=== PATIENT | male | born 1950 | race Caucasian/White ===

== ENCOUNTER → 2017-06-30 | Outpatient (CLI) | payer MEDICARE | LOC: RT 12:47 | DX: G47.10 Hypersomnia, unspecified (principal); J44.9 Chronic obstructive pulmonary disease, unspecified; R06.83 Snoring; R53.83 Other fatigue ==

== ENCOUNTER → 2017-07-04 | Outpatient (CLI) | payer MEDICARE ==
[2017-07-04 12:59] LABS: HEMOGLOBIN 14.6 g/dL (14.1-18.0); LYMPH # 1.1 K/mm3 (0.7-4.5); LYMPH % 16.4 % (10-50)
--- NOTE | 2017-07-08 08:27 | RADIOLOGY REPORT PS360 ---
NUC BONE SCAN (W/FLOW) 3PHASE HISTORY: Left knee pain R/O INFECTION LEFT KNEE ORDERING PHYSICIAN: CONCETTA CHUA PATIENT AGE: 66 years COMPARISON: Outside radiographs of 07/02/2017 of the knees and left knee of 06/07/2015 DOSE: 24.8 mCi technetium MDP FINDINGS: The blood flow images show slight increase activity to the left knee and upper leg. This is not as intense as one one would expect for an acute area of osteomyelitis. The blood pool images demonstrates increased activity about the left knee both medially and laterally greater along the medial aspect of the knee joint at both the distal femur and proximal tibia. Curiously, increased activity is also present along the distal and anterior aspect of the femur/suprapatellar region. The delayed images demonstrate increased activity at the medial aspect of the knee joint at both the distal femur and proximal tibia. Photopenic area is noted at the right knee from previous total knee prosthesis. IMPRESSION: Increased activity involves the medial aspect of the left knee on the immediate and delayed images with only slight increased activity on the blood flow images. All these findings may only be related to chronic inflammation, Underlying infection of the prosthesis cannot be excluded based on this study. Consider tagged white blood cell scan for further evaluation if clinically warranted.
== END ==
LOC: RAD 11:00
PROVIDERS: Specialist/Technologist Athletic Trainer
DX: M25.562 Pain in left knee (principal)
CPT/HCPCS: A9503

== ENCOUNTER → 2017-07-22 | Outpatient (CLI) | payer MEDICARE ==
--- NOTE | 2017-07-22 07:28 | RADIOLOGY REPORT PS360 ---
CHEST(2 VIEWS-NOT PORTABLE) HISTORY: COPD ORDERING PHYSICIAN: Eleazar Easton MD PATIENT AGE: 66 years COMPARISON: 02/17/2017 FINDINGS: The cardiomediastinal silhouette and pulmonary vascularity are within normal limits. Hyperinflation with attenuation of the peripheral performed vessels consistent with COPD. Calcified granuloma is present in the left lung base. Pericardial fat pad noted on the left as well. There is some minimal scarring in the right upper lobe. No lobar consolidation or collapse.. No acute bony abnormalities. IMPRESSION: COPD, old granulomatous disease. No change with no acute finding
[2017-07-22 08:24] LABS: URINE BILIRUBIN - DIPSTICK NEGATIVE (NEG); URINE BLOOD NEGATIVE (NEG)
[2017-07-22 08:29] LABS: LYMPH # 1.5 K/mm3 (0.7-4.5); LYMPH % 27.9 % (10-50)
[2017-07-22 09:07] LABS: HEMOGLOBIN 16.1 g/dL (14.1-18.0)
[2017-07-22 09:32] LABS: URINE SQUAMOUS CELLS OCC #/hpf (OCC)
[2017-07-22 10:24] LABS: BUN 16 mg/dL (7-18)
[2017-07-22 11:12] LABS: GFR (ESTIMATED) 55 ML/MIN (>60)
== END ==
LOC: RAD 07:08
PROVIDERS: Family Medicine
DX: M25.562 Pain in left knee (principal); Z01.818 Encounter for other preprocedural examination; R23.3 Spontaneous ecchymoses